=== PATIENT | male | born 1965 | race African-American/Black ===

== ENCOUNTER 2021-02-14 13:27 | Emergency (ER) | payer MEDICAID ==
[~2021-02-14] VITALS: Ht 182.9 cm; Wt 111.4 kg
[2021-02-14 13:34] VITALS: BP 192/113
[2021-02-14] MEDS ORDERED: AMLO10TA48 PO (14:18)
[2021-02-14] MEDS ORDERED: LISI40TA13 PO ×2 (14:18→15:38)
[2021-02-14] MEDS ORDERED: HYDR25TA5 PO ×2 (14:18→15:38)
[2021-02-14] MEDS ORDERED: INSU100C4 SQ ×3 (14:20→15:38)
[2021-02-14] MEDS ORDERED: ketorolac tromethamine 15mg/ml inj. IM ONE ×2 (14:25→15:20)
[2021-02-14 14:56] LABS: ALBUMIN 3.2 G/DL (3.4-5.0); ANION GAP 8 (8-16); BLOOD UREA NITROGEN 18 MG/DL (7-18); BUN/CREATININE RATIO 15.1 (5.4-32.0); CALCIUM 9.2 MG/DL (8.5-10.1); CHLORIDE 104 MMOL/L (99-107); CREATININE 1.19 MG/DL (0.60-1.10); GLUCOSE 248 MG/DL (70-104); POTASSIUM 3.9 MMOL/L (3.5-5.1); SODIUM 139 MMOL/L (135-145); TOTAL CARBON DIOXIDE 27.2 MMOL/L (24-32); eGFR 64 ML/MIN
[2021-02-14] MEDS ORDERED: naproxen sodium 220mg tablet PO STA (15:11)
[2021-02-14] MEDS ORDERED: insulin regular, human 10 units/0.1 ml syringe SQ ONE (15:15)
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
[2021-02-14] MEDS ORDERED: LIDOcaine 5% patch TP STA (15:26)
[2021-02-14] MEDS ORDERED: ATOR40TA PO (15:38)
[2021-02-14] MEDS ORDERED: AMLO10TA4 PO (15:38)
[2021-02-14] MEDS ORDERED: INSU100I50 SQ (15:38)
== END 2021-02-14 16:58 | disposition home or self-care (01) ==
LOC: ER 13:29
DX: S29.011A Strain of muscle and tendon of front wall of thorax, initial encounter (principal); R05 Cough; F12.90 Cannabis use, unspecified, uncomplicated; E11.65 Type 2 diabetes mellitus with hyperglycemia; E78.00 Pure hypercholesterolemia, unspecified; I25.10 Atherosclerotic heart disease of native coronary artery without angina pectoris; Z88.0 Allergy status to penicillin; Z88.8 Allergy status to other drugs, medicaments and biological substances; Z91.041 Radiographic dye allergy status; Z79.4 Long term (current) use of insulin; Z79.899 Other long term (current) drug therapy; W34.09XA Accidental discharge from other specified firearms, initial encounter; Y93.89 Activity, other specified; Y92.89 Other specified places as the place of occurrence of the external cause; Y99.8 Other external cause status
CPT/HCPCS: 36415; 71045; 80048; 82948; 93005; 96372; 99285; J1815